=== PATIENT | female | born 1940 ===

== ENCOUNTER 2018-05-08 09:40 | Day surgery (SDC) | payer MEDICARE, MEDICAID ==
[2018-05-04 12:22] LABS: ABSOLUTE LYMPHOCYTES (AUTO) 0.8 10^3/uL (0.5-4.7); ABSOLUTE MONOCYTES (AUTO) 0.5 10^3/uL (0.1-1.4); MEAN CORPUSCULAR VOLUME 91 fl (80-97); RED BLOOD COUNT 4.93 10^6/uL (3.72-5.28)
[2018-05-04 12:26] LABS: INTERNATIONAL RATION (INR) 0.86; PROTHROMBIN TIME 12.2 SEC (11.4-15.4)
[2018-05-04 12:27] LABS: PARTIAL THROMBOPLASTIN TIME 31.7 SEC (23.5-35.8)
[2018-05-04 12:33] LABS: ABSOLUTE NEUT (AUTO) 4.5 10^3/uL (1.7-8.2); BASOPHILS % (AUTO) 0.8 % (0-2); EOSINOPHILS % (AUTO) 0.8 % (0-6); HEMATOCRIT 44.8 % (36.0-47.0); HEMOGLOBIN 15.5 g/dL (12.0-15.5); LYMPHOCYTES % (AUTO) 13.1 % (13-45); MEAN CORPUSCULAR HEMOGLOBIN 31.4 pg (27.0-33.4); MEAN CORPUSCULAR HGB CONC 34.5 g/dL (32.0-36.0); MONOCYTES % (AUTO) 8.9 % (3-13); PLATELET COUNT 238 10^3/uL (150-450); RED CELL DISTRIBUTION WIDTH 15.6 % (11.5-14.0); SEGMENTED NEUTROPHILS % (AUTO) 76.4 % (42-78); TOTAL CELLS COUNTED % (AUTO) 100 %; WHITE BLOOD COUNT 5.8 10^3/uL (4.0-10.5)
[2018-05-04 12:34] LABS: APPEARANCE,URINE CLEAR; BILIRUBIN,URINE NEGATIVE (NEGATIVE); COLOR,URINE YELLOW; GLUCOSE, URINE NEGATIVE (NEGATIVE); KETONES,URINE NEGATIVE (NEGATIVE); LEUKOCYTE ESTERASE,URINE NEGATIVE (NEGATIVE); NITRITE,URINE NEGATIVE (NEGATIVE); PROTEIN,URINE 100 mg/dL (NEGATIVE); URINE SPECIFIC GRAVITY 1.017; UROBILINOGEN,URINE NEGATIVE mg/dL (<2.0)
--- NOTE | 2018-05-04 12:40 | EKG REPORT ---
SEVERITY:- ABNORMAL ECG - SINUS RHYTHM PROBABLE LEFT VENTRICULAR HYPERTROPHY : Confirmed by: Slime Weller MD 04-May-2018 12:39:18
[~2018-05-08 09:40] MED LIST: CEFAZOLIN 1 GM/D5W RTU 1 GM/50 ML RTUPB IV PRN; LACTATED RINGERS 1000 ML IV PRN
[2018-05-08] MEDS ORDERED: MIDAZOLAM 2 MG/2 ML INJ ONE (09:43)
[2018-05-08] MEDS ORDERED: PROPOFOL INJ 200 MG/20 ML VIAL IV ONE (09:44)
[2018-05-08] MEDS ORDERED: DEXAMETHASONE SOD PHOSPHATE INJ 4 MG/1 ML VIAL ONE (09:44)
[2018-05-08] MEDS ORDERED: ONDANSETRON HCL INJ/PF 4 MG/2 ML SDV ONE (09:44)
[2018-05-08] MEDS ORDERED: CEFAZOLIN 1 GM/D5W RTU 1 GM/50 ML RTUPB IV ONE (09:53)
[2018-05-08] MEDS ORDERED: ALBUTEROL SULFATE 0.083% NEB 2.5 MG/3 ML AMPUL NEB ONE (10:38)
[2018-05-08] MEDS ORDERED: TRIAMCINOLONE ACETONIDE INJ 40 MG/1 ML VIAL ONE (11:00)
[2018-05-08] MEDS ORDERED: LIDOCAINE 1% INJ-PF (10 MG/ML) 30 ML SDV ONE (11:00)
[2018-05-08] MEDS ORDERED: BUPIVACAINE HCL 0.25% /EPINEPHRINE INJ/PF 30 ML SDV ONE (11:01)
[2018-05-08] MEDS ORDERED: PROMETHAZINE HCL INJ 25 MG/1 ML VIAL IV PRN ×2 (11:20)
[2018-05-08] MEDS ORDERED: FENTANYL CITRATE INJ/PF 100 MCG/2 ML AMPUL IV PRN ×2 (11:20)
[2018-05-08] MEDS ORDERED: MEPERIDINE HCL/PF INJ 25 MG/1 ML DISP.SYRIN IV PRN (11:20)
[2018-05-08] MEDS ORDERED: MORPHINE SULFATE 10 MG/ML INJ IV PRN (11:20)
[2018-05-08] MEDS ORDERED: ONDANSETRON HCL INJ/PF 4 MG/2 ML SDV IV PRN (11:20)
[2018-05-08] MEDS ORDERED: DIPHENHYDRAMINE HCL 50 MG/ML VIAL IV PRN (11:20)
[2018-05-08] MEDS ORDERED: CEFAZOLIN INJ 1 GM VIAL ONE (12:17)
[2018-05-08] MEDS ORDERED: FENTANYL CITRATE INJ/PF 100 MCG/2 ML AMPUL ONE (12:20)
[2018-05-08] MEDS: FENTANYL CITRATE INJ/PF 100 MCG/2 ML AMPUL IV PRN ×2 (12:22→12:33)
[2018-05-08] MEDS ORDERED: OXYCODONE-ACETAMINOPHEN 5-325 MG TABLET ONE (13:21)
--- NOTE | 2018-05-08 13:47 | RADIOLOGY REPORT (SQ) ---
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 FLUOROSCOPY TIME: 9.8 minutes 24 images saved to PACS. TECHNIQUE: Intra-operative images acquired during surgical procedure to evaluate progress. NUMBER OF IMAGES: 24 LIMITATIONS: None. FINDINGS: Multi images with spinal needle overlying lower lumbar spine. IMPRESSION: IMAGE(S) OBTAINED DURING PROCEDURE. COMMENT: Quality ID 145: Final reports for procedures using fluoroscopy that document radiation exp osure indices, or exposure time and number of fluorographic images (if radiation exposure indices are not available) Please consult full operative report of the attending physician for description of the procedure. TECHNICAL DOCUMENTATION: JOB ID: [id number] [employer]- All Rights Reserved Reading location - IP/workstation name: [email or web address]
--- NOTE | 2018-05-08 13:47 | RADIOLOGY REPORT (SQ) ---
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 FLUOROSCOPY TIME: 9.8 minutes 24 images saved to PACS. TECHNIQUE: Intra-operative images acquired during surgical procedure to evaluate progress. NUMBER OF IMAGES: 24 LIMITATIONS: None. FINDINGS: Multi images with spinal needle overlying lower lumbar spine. IMPRESSION: IMAGE(S) OBTAINED DURING PROCEDURE. COMMENT: Quality ID 145: Final reports for procedures using fluoroscopy that document radiation exp osure indices, or exposure time and number of fluorographic images (if radiation exposure indices are not available) Please consult full operative report of the attending physician for description of the procedure. TECHNICAL DOCUMENTATION: JOB ID: [id number] [employer]- All Rights Reserved Reading location - IP/workstation name: [email or web address]
[2018-05-08 14:50] VITALS: BP 153/76
--- NOTE | 2018-05-08 22:26 | OPERATIVE REPORT E ---
Operative Report NAME: MARIA ANTONIA ZHANG : 1940 AGE: 77Y DATE OF SURGERY: 05/08/2018 ROOM: PREOPERATIVE DIAGNOSIS: LUMBAR SPINAL STENOSIS MULTILEVEL WITH NEUROGENIC CLAUDICATION. 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 OPERATIVE PROCEDURE: 1. Minimally invasive lumbar decompression under fluoroscopic guidance at the L3-4 and L4-5 level. 2. Lumbar epidural steroid injection at completion of procedure. SURGEON: Atilio Stallworth M.D. PERSONALIZED LIVING MANAGER NURSE: Aristeo Galvan M.D. ANESTHESIA: MAC. SPECIMENS REMOVED: Ligament and lamina from the above described levels. INDICATIONS: Intractable pain with neurogenic claudication on the face of multilevel lumbar spinal stenosis. PROCEDURE NOTE: After obtaining informed consent, advised the patient of the risks and benefits including serious neurological injury, bleeding and infection, paralysis, aggravation of pain, worsening of pain, failure to respond to treatment, allergic reaction, and she was taken to the operating room. She was placed comfortably in the prone position. She was prepped and draped in the usual fashion with appropriate drying time. Under fluoroscopic guidance the lumbar spine was evaluated, landmarks were identified on the skin and marked. An epidural needle was inserted at the L3-4 interspace in the right paramedian location with the tip entering in the near midline position. Epidurography was performed with Isovue-M 200, demonstrating the presence of stenosis as identified on the MRI. Distal sites over the lumbosacral junction in the paraspinal location skin holes were made for the approach of the MILD trocars. Beginning on the left a small incision was made in the paraspinal musculature down to the 3-4 level was anesthetized with 1% lidocaine. Once the trocars were in place and stabilized and evaluated on AP lateral and contralateral oblique views decompression was initiated using the bone rongeur and the sculpting tool. When the 3-4 level was felt to be satisfactorily decompressed attention was directed towards the 4-5 level on the same side. When this was completed attention was directed towards the procedure on the right as described above with decompression occurring again at the 3-4 and 4-5 levels. Epidurography was intermittently performed demonstrating improvement in spread. Upon completion of the procedure all instrumentation was removed with the exception of the 18-gauge Tuohy needle, through this an epidural steroid injection of Kenalog was administered 80 mg. When this was completed all instrumentation was removed. The region was cleansed. Sterile dressings were applied to the wound and the patient was taken to the PACU for further postoperative care and monitoring. DICTATING PHYSICIAN: ATILIO STALLWORTH M.D. [id number] PHY#: [id number] ID: [id number] JOB#: [id number] ACCT: [id number] cc:ATILIO STALLWORTH M.D. >
== END 2018-05-08 14:30 | disposition home or self-care (01) ==
LOC: OROUT 09:40
PROVIDERS: ATTEND Pain Medicine Interventional Pain Medicine
DX: M48.062 Spinal stenosis, lumbar region with neurogenic claudication (principal); Z00.6 Encounter for examination for normal comparison and control in clinical research program; M51.36 Other intervertebral disc degeneration, lumbar region; M06.9 Rheumatoid arthritis, unspecified; M51.26 Other intervertebral disc displacement, lumbar region; Z79.01 Long term (current) use of anticoagulants; J44.9 Chronic obstructive pulmonary disease, unspecified; I11.0 Hypertensive heart disease with heart failure; E78.5 Hyperlipidemia, unspecified; I50.9 Heart failure, unspecified; Z85.038 Personal history of other malignant neoplasm of large intestine; Z85.3 Personal history of malignant neoplasm of breast; Z79.899 Other long term (current) drug therapy
CPT/HCPCS: 0275T; 62322; 36415; 630; 72100; 81001; 84132; 85025; 85610; 85730; 93005; 93010; 94640; J0690; J1100; J2250; J2405; J2704; J3010; J3490; Q9966